=== PATIENT | male | born 1990 | race Caucasian/White ===

== ENCOUNTER 2025-07-17 14:47 | Inpatient (IN) | payer MEDICAID, OTHER ==
[~2025-07-17] VITALS: Ht 185.4 cm; Wt 74.5 kg
[~2025-07-17 14:47] MED LIST: SERT20OR13 PO; TRAZ-184 PO
[2025-07-17 16:35] LABS: PLATELET COUNT (AUTO) 142 K/uL (150-450); RED BLOOD CELL COUNT(AUTO) 4.39 MIL/uL (4.50-5.90); RED CELL DISTRIBUTION WIDTH 13.1 % (11.5-14.5); WHITE BLOOD COUNT (AUTO) 4.5 K/uL (4.5-11.0)
[2025-07-17 16:44] LABS: CALCIUM, TOTAL 9.1 mg/dL (8.8-10.5); CREATININE 0.85 mg/dL (0.60-1.30); GLOMERULAR FILTR. RATE CALC > 60 mL/min (>60); GLUCOSE,RANDOM 96 mg/dL (70-110); SODIUM SERUM 137 mmol/L (136-145); UREA NITROGEN, BLOOD 16 mg/dL (7-18)
[2025-07-17 16:50] LABS: ASPARTATE AMINOTRANSFERASE 55 U/L (15-37); CREATINE KINASE, TOTAL ONLY 104 U/L (39-308); TOTAL PROTEIN, SERUM 6.8 g/dL (6.4-8.2)
[2025-07-17 16:51] LABS: ALCOHOL, BLOOD (SERUM) < 3 mg/dL (0-10)
[2025-07-17 16:54] LABS: TROPONIN I-HIGH SENSITIVITY 4 ng/L (<76)
[2025-07-17] MEDS: RINGERS SOLUTION,LACTATED 500 ML IV ONE (17:45)
[2025-07-17] MEDS: KETOROLAC TROMETHAMINE 30 MG/ML VIAL IVP ONE (20:52)
[2025-07-17] MEDS: DOCUSATE SODIUM 100 MG CAPSULE PO SCH (20:53)
[2025-07-17 21:55] VITALS: BP 112/63; PULSE 57; RESP 19; TEMP 97.3; O2SAT 96
[2025-07-17] MEDS: HEPARIN SODIUM,PORCINE 5,000 UNITS/ML VIAL SQ SCH (23:20)
[2025-07-18] VITALS (8 sets, daily range): BP systolic 98–109; BP diastolic 60–67; PULSE 52–61; RESP 16–19; TEMP 97.3–98.4; O2SAT 94–99
[2025-07-18 06:05] LABS: PLATELET COUNT (AUTO) 136 K/uL (150-450); RED BLOOD CELL COUNT(AUTO) 4.25 MIL/uL (4.50-5.90); RED CELL DISTRIBUTION WIDTH 12.9 % (11.5-14.5); WHITE BLOOD COUNT (AUTO) 5.0 K/uL (4.5-11.0)
[2025-07-18 06:31] LABS: CALCIUM, TOTAL 8.7 mg/dL (8.8-10.5); CREATININE 0.85 mg/dL (0.60-1.30); GLOMERULAR FILTR. RATE CALC > 60 mL/min (>60); GLUCOSE,RANDOM 87 mg/dL (70-110); SODIUM SERUM 139 mmol/L (136-145); UREA NITROGEN, BLOOD 15 mg/dL (7-18)
[2025-07-18] MEDS: KETOROLAC TROMETHAMINE 15 MG/ML VIAL IVP ONE (07:01)
[2025-07-18] MEDS ORDERED: GADOTERATE MEGLUMINE 10 MMOL/20 ML VIAL IVP ONE (11:00)
[2025-07-18] MEDS: BUPRENORPHINE HCL/NALOXONE HCL 8-2 MG SUBLINGUAL TABLET SL SCH (17:23)
[2025-07-18] MEDS: KETOROLAC TROMETHAMINE 15 MG/ML VIAL IVP PRN (18:03)
[2025-07-19 03:50] VITALS: BP 107/75; PULSE 91; RESP 18; TEMP 98.6; O2SAT 95
[2025-07-19 07:33] LABS: TROPONIN I-HIGH SENSITIVITY 5 ng/L (<76)
[2025-07-19 07:46] LABS: ASPARTATE AMINOTRANSFERASE 52 U/L (15-37); CALCIUM, TOTAL 8.8 mg/dL (8.8-10.5); CREATININE 0.77 mg/dL (0.60-1.30); GLOMERULAR FILTR. RATE CALC > 60 mL/min (>60); GLUCOSE,RANDOM 75 mg/dL (70-110); SODIUM SERUM 138 mmol/L (136-145); TOTAL PROTEIN, SERUM 6.3 g/dL (6.4-8.2); UREA NITROGEN, BLOOD 11 mg/dL (7-18)
[2025-07-19 08:26] VITALS: BP 112/69; PULSE 60; RESP 18; TEMP 97.3; O2SAT 98
[2025-07-19 10:00] VITALS: BP_SYST 109; BP_SYST 118; BP_DIAS 64; BP_DIAS 68; BP_DIAS 75; PULSE 74
[2025-07-19] MEDS: LEVOTHYROXINE SODIUM 25 MCG TABLET PO SCH (11:18)
[2025-07-19 11:53] VITALS: BP 109/65; PULSE 52; RESP 18; TEMP 97.9; O2SAT 100
[2025-07-19] MEDS: ONDANSETRON HCL 4 MG/2 ML VIAL IVP PRN (14:45)
[2025-07-19] MEDS ORDERED: LIDOCAINE 5% 36 GM OINTMENT TP ONE (14:45)
[2025-07-19 15:48] VITALS: BP 113/73; PULSE 68; RESP 18; TEMP 97.7; O2SAT 100
[2025-07-19] MEDS: LIDOCAINE 5% TRANSDERMAL PATCH TD ONE (16:33)
[2025-07-19 20:16] VITALS: BP 111/69; PULSE 56; RESP 18; TEMP 98.6; O2SAT 98
[2025-07-20 00:23] VITALS: BP 118/66; PULSE 59; RESP 18; TEMP 98.2; O2SAT 97
[2025-07-20 05:06] VITALS: BP 112/73; PULSE 55; RESP 16; TEMP 97.3; O2SAT 98
[2025-07-20 08:17] VITALS: BP 110/69; PULSE 56; RESP 17; TEMP 98.2; O2SAT 98
[2025-07-20 11:54] VITALS: BP 115/72; PULSE 63; RESP 18; TEMP 98.2; O2SAT 98
[2025-07-20 16:20] VITALS: BP 112/63; PULSE 66; RESP 18; TEMP 98.4; O2SAT 97
[2025-07-20 19:53] VITALS: BP 109/68; PULSE 78; RESP 19; TEMP 98.6; O2SAT 97
[2025-07-21 00:17] VITALS: BP 98/54; PULSE 54; RESP 17; TEMP 98.4; O2SAT 93
[2025-07-21 03:48] VITALS: BP 96/64; PULSE 64; RESP 19; TEMP 97.3; O2SAT 98
[2025-07-21 08:00] VITALS: BP 107/70; PULSE 53; RESP 20; TEMP 97.5; O2SAT 97
[2025-07-21] MEDS ORDERED: LEVO25TA9 PO (13:51)
[2025-07-21] MEDS ORDERED: BUPR1TAB45 SL (13:53)
[2025-07-21 16:02] VITALS: BP 107/77; PULSE 60; RESP 18; TEMP 98.2; O2SAT 97
== END 2025-07-21 15:40 | DRG 93 ==
LOC: EMS 14:53 → EDH 16:43 → 5N 21:51 → 6N 07-21 01:05
PROVIDERS: ADMIT Internal Medicine; ATTEND Internal Medicine
DX: G92.8 Other toxic encephalopathy (principal); M48.061 Spinal stenosis, lumbar region without neurogenic claudication; F20.9 Schizophrenia, unspecified; F41.9 Anxiety disorder, unspecified; F32.A Depression, unspecified; R55 Syncope and collapse; G89.29 Other chronic pain; F15.10 Other stimulant abuse, uncomplicated; Y90.0 Blood alcohol level of less than 20 mg/100 ml; F11.10 Opioid abuse, uncomplicated; F10.10 Alcohol abuse, uncomplicated; Z76.5 Malingerer [conscious simulation]; Z87.820 Personal history of traumatic brain injury; Z88.6 Allergy status to analgesic agent; Z79.899 Other long term (current) drug therapy
CPT/HCPCS: 70450; 71045; 72146; 72158; 80048; 80053; 80076; 82550; 83735; 83880; 84439; 84443; 84484; 85025; 93005; 93306; 93880; 99285; G0480; J1644; J1885; J2405; J7120; 36415-L1; 36415-TC